=== PATIENT | female | born 2000 | race Caucasian/White ===

== ENCOUNTER → 2020-05-07 | Outpatient (CLI) | payer OTHER | LOC: ZCOL.LAB 15:28 | DX: J02.9 Acute pharyngitis, unspecified (principal); Z20.828 Contact with and (suspected) exposure to other viral communicable diseases ==

== ENCOUNTER 2020-08-28 13:50 | Emergency (ER) | payer OTHER ==
[~2020-08-28] VITALS: Ht 165.1 cm; Wt 61.4 kg
[2020-08-28 13:58] VITALS: BP 133/86; TEMP 98.8
[2020-08-28 15:01] LABS: COLLECTION METHOD CLEAN CATCH
[2020-08-28] MEDS ORDERED: BIRTH CONTROL (15:05)
[2020-08-28] MEDS ORDERED: ZOLOFT20 MG/ML PO (15:05)
[2020-08-28 15:18] LABS: PH 5 (5-8); SQUAMOUS EPITHELIAL None Seen /hpf; URINE APPEARANCE Cloudy; URINE BACTERIA Moderate /hpf; URINE BILIRUBIN Negative (NEGATIVE); URINE BLOOD 3+ (NEGATIVE); URINE COLOR Yellow; URINE GLUCOSE Negative (NEGATIVE); URINE KETONE Negative (NEGATIVE); URINE LEUKOCYTE ESTERASE 3+ (NEGATIVE); URINE NITRATE Negative (NEGATIVE); URINE PROTEIN(semi-quant) 2+ (NEGATIVE); URINE RBC >50 /hpf; URINE UROBILINOGEN Negative (NEGATIVE); URINE WBC >50 /hpf
[2020-08-28] MEDS ORDERED: BACTRIM DS 8001 TAB PO (15:51)
[2020-08-28 16:09] VITALS: PULSE 99
[2020-08-28] MEDS ORDERED: ZOLOFT 25MG25 MG PO (16:14)
== END 2020-08-28 16:09 | disposition home or self-care (01) ==
LOC: COL.ER 13:50
PROVIDERS: Emergency Medicine
DX: N39.0 Urinary tract infection, site not specified (principal); Z88.1 Allergy status to other antibiotic agents